=== PATIENT | female | born 1945 | race Caucasian/White ===

== ENCOUNTER 2017-06-13 10:09 | Day surgery (SDC) | payer MEDICARE ==
[~2017-06-13] VITALS: Ht 162.6 cm; Wt 59.6 kg
[2017-06-13] MEDS ORDERED: immodium PO (11:23)
[2017-06-13] MEDS ORDERED: VITA1TAB19 PO (11:23)
[2017-06-13] MEDS ORDERED: CHOL2000 PO (11:23)
[2017-06-13] MEDS ORDERED: TRAZ150T62 PO (11:23)
[2017-06-13] MEDS ORDERED: TEMA30CA PO (11:23)
[2017-06-13 11:24] VITALS: BP 133/63
[2017-06-13] MEDS ORDERED: LIDOCAINE 1%, 2ML ONE (11:32)
[2017-06-13] MEDS ORDERED: LACTATED RINGERS 1,000 ML IV SCH (11:45)
[2017-06-13] MEDS ORDERED: MIDAZOLAM 1 MG/ML, 2ML ONE (11:50)
[2017-06-13] MEDS ORDERED: FENTANYL PF 100 MCG/2ML ONE ×2 (11:50)
[2017-06-13] MEDS ORDERED: ROCURONIUM 10 MG/ML ONE (11:53)
[2017-06-13] MEDS ORDERED: DEXAMETHASONE 4 MG/ML, 5ML ONE (11:53)
[2017-06-13] MEDS ORDERED: SUCCINYLCHOLINE 20 MG/ML, 10ML ONE (11:53)
[2017-06-13] MEDS ORDERED: ONDANSETRON 2MG/ML, 2ML ONE (11:53)
[2017-06-13] MEDS ORDERED: PROPOFOL 10 MG/ML, 20ML ONE (11:53)
[2017-06-13] MEDS ORDERED: LIDOCAINE 1%, 2ML SQ PRN (12:00)
[2017-06-13] MEDS ORDERED: LIDOCAINE-MPF 2% ,5ML ONE (12:28)
[2017-06-13] MEDS ORDERED: LORazepam 2 MG/ML, 1ML IVPush PRN (12:30)
[2017-06-13] MEDS ORDERED: ONDANSETRON 2MG/ML, 2ML IVPush PRN (12:30)
[2017-06-13] MEDS ORDERED: HYDROcodone/APAP 7.5-325MG/15ML UDC PO PRN (12:30)
[2017-06-13] MEDS ORDERED: HYDROmorphone 1 MG/ML, 1ML IV PRN (12:30)
[2017-06-13] MEDS ORDERED: OXYcodone 5 MG/5 ML ORAL.SOL UDC PO PRN (12:30)
[2017-06-13] MEDS ORDERED: FENTANYL PF 100 MCG/2ML IV PRN (12:30)
[2017-06-13] MEDS ORDERED: HYDROmorphone 1 MG/ML, 1ML ONE (12:45)
[2017-06-13] MEDS ORDERED: GLUCAGON 1 MG ONE (13:40)
== END 2017-06-13 18:30 ==
LOC: OUT 10:09
PROVIDERS: ATTEND Internal Medicine
DX: C25.0 Malignant neoplasm of head of pancreas (principal); K21.9 Gastro-esophageal reflux disease without esophagitis
CPT/HCPCS: 43242; 43260; 74328; 88172; 88173; 88177; 88307; 93005; C1769; J0330; J1100; J1170; J1610; J2250; J2405; J2704; J3010; J3490; J7120

== ENCOUNTER 2017-07-31 13:48 | Emergency (ER) | payer MEDICARE ==
[~2017-07-31] VITALS: Ht 162.6 cm; Wt 51.0 kg
[~2017-07-31 13:48] MED LIST: CHOL2000 PO; TEMA30CA PO; TRAZ150T62 PO; VITA1TAB19 PO; immodium PO
[2017-07-31] MEDS ORDERED: PREG100C PO (14:06)
[2017-07-31] MEDS ORDERED: CLON0.5T20 PO (14:06)
[2017-07-31] MEDS ORDERED: SODIUM CHLORIDE FLUSH 10ML SYR IVF ONE (14:30)
[2017-07-31 14:56] LABS: HEMATOCRIT 33.2 % (34.6-47.8); HEMOGLOBIN 10.8 g/dL (11.7-16.4)
[2017-07-31 15:10] LABS: ASPARTATE AMINO TRANSFERASE 47 U/L (15-37); BLOOD UREA NITROGEN 12 mg/dL (7-18)
[2017-07-31 15:16] LABS: IS PT STATUS REG ER OR PRE ER? YES
[2017-07-31 16:15] VITALS: BP 111/47
== END 2017-07-31 17:08 | disposition home or self-care (01) ==
LOC: ED 17:02
DX: R53.81 Other malaise (principal); D64.9 Anemia, unspecified; R74.8 Abnormal levels of other serum enzymes; R74.0 Nonspecific elevation of levels of transaminase and lactic acid dehydrogenase [LDH]; Z85.07 Personal history of malignant neoplasm of pancreas
CPT/HCPCS: 36415; 74022; 80053; 82140; 83605; 83690; 83880; 84484; 85025; 85610; 93005; 99285

== ENCOUNTER 2017-09-12 08:56 | Day surgery (SDC) | payer MEDICARE ==
[~2017-09-12] VITALS: Ht 162.6 cm; Wt 56.2 kg
[~2017-09-12 08:56] MED LIST changes: +CLON0.5T20 PO; +PREG100C PO
[2017-09-12] MEDS ORDERED: PLEASE ENTER HEIGHT AND WEIGHT MC SCH (09:11)
[2017-09-12] MEDS ORDERED: SODIUM CHLORIDE 0.9% 1,000 ML IV SCH (09:16)
[2017-09-12 09:43] VITALS: BP 108/69
[2017-09-12] MEDS ORDERED: CIPROFLOXACIN/PMX 400MG/200ML 200 ML IVPB ONE (10:30)
[2017-09-12] MEDS ORDERED: LIDOCAINE 1%, 20ML ONE (10:45)
[2017-09-12] MEDS ORDERED: MIDAZOLAM 1 MG/ML, 2ML ONE (10:54)
[2017-09-12] MEDS ORDERED: NALOXONE 1 MG/ML, 2ML ONE (10:54)
[2017-09-12] MEDS ORDERED: FENTANYL PF 100 MCG/2ML ONE (10:54)
[2017-09-12] MEDS ORDERED: FLUMAZENIL 0.1 MG/1 ML, 5ML ONE (10:54)
== END 2017-09-12 13:25 ==
LOC: OUT 08:56
PROVIDERS: ATTEND Internal Medicine Hematology & Oncology
DX: T85.590A Other mechanical complication of bile duct prosthesis, initial encounter (principal); C25.0 Malignant neoplasm of head of pancreas; Y83.8 Other surgical procedures as the cause of abnormal reaction of the patient, or of later complication, without mention of misadventure at the time of the procedure; Y92.89 Other specified places as the place of occurrence of the external cause
CPT/HCPCS: 47536; 99156; 99157; C1729; C1769; J0744; J2250; J3010; J3490; J7030; J2310

== ENCOUNTER 2017-09-21 06:13 | Day surgery (SDC) | payer MEDICARE ==
[~2017-09-21] VITALS: Ht 162.6 cm; Wt 58.4 kg
[2017-09-21 06:51] VITALS: BP 119/77
[2017-09-21] MEDS ORDERED: SODIUM CHLORIDE 0.9% 1,000 ML IV SCH ×2 (07:30)
[2017-09-21] MEDS ORDERED: LIDOCAINE 2%, 20ML ONE (07:50)
[2017-09-21] MEDS ORDERED: FENTANYL PF 100 MCG/2ML ONE (08:17)
[2017-09-21] MEDS ORDERED: MIDAZOLAM 1 MG/ML, 2ML ONE (08:17)
[2017-09-21] MEDS ORDERED: FLUMAZENIL 0.1 MG/1 ML, 5ML ONE (08:17)
[2017-09-21] MEDS ORDERED: NALOXONE 1 MG/ML, 2ML ONE (08:17)
== END 2017-09-21 11:30 ==
LOC: OUT 06:13 → EDSTATUS 08:00 → OUT 11:30
PROVIDERS: ATTEND Internal Medicine Hematology & Oncology
DX: C25.0 Malignant neoplasm of head of pancreas (principal); R18.8 Other ascites
CPT/HCPCS: 47536; 76000; 99156; 99157; C1729; C1751; C1769; J2250; J3010; J3490; J7030; J2310

== ENCOUNTER → 2017-10-04 | Outpatient (CLI) | payer MEDICARE ==
[~2017-10-04] MED LIST changes: +LIDOCAINE 1%, 20ML ONE
== END | disposition home or self-care (01) ==
LOC: RAD 08:56
PROVIDERS: ATTEND Internal Medicine Geriatric Medicine
DX: R18.8 Other ascites (principal); R10.9 Unspecified abdominal pain; R14.0 Abdominal distension (gaseous); C25.9 Malignant neoplasm of pancreas, unspecified
CPT/HCPCS: 49083; J3490

== ENCOUNTER 2017-10-17 08:55 | Day surgery (SDC) | payer MEDICARE ==
[~2017-10-17] VITALS: Ht 162.6 cm; Wt 53.8 kg
[~2017-10-17 08:55] MED LIST changes: -LIDOCAINE 1%, 20ML ONE
[2017-10-17 09:33] VITALS: BP 110/68
[2017-10-17] MEDS ORDERED: SODIUM CHLORIDE 0.9% 1,000 ML IV SCH (09:39)
[2017-10-17] MEDS ORDERED: PLEASE ENTER HEIGHT AND WEIGHT MC SCH (10:00)
[2017-10-17] MEDS ORDERED: CIPROFLOXACIN/PMX 400MG/200ML 200 ML IVPB ONE (10:00)
[2017-10-17] MEDS ORDERED: FENTANYL PF 100 MCG/2ML ONE (10:12)
[2017-10-17] MEDS ORDERED: FLUMAZENIL 0.1 MG/1 ML, 5ML ONE (10:12)
[2017-10-17] MEDS ORDERED: MIDAZOLAM 1 MG/ML, 5ML ONE (10:12)
[2017-10-17] MEDS ORDERED: NALOXONE 1 MG/ML, 2ML ONE (10:13)
[2017-10-17] MEDS ORDERED: ONDANSETRON 2MG/ML, 2ML ONE (11:09)
[2017-10-17] MEDS ORDERED: VISIPAQUE 270 MG/ML, 50ML BOTTLE ONE (11:25)
[2017-10-17] MEDS ORDERED: LIDOCAINE 1%, 20ML ONE (11:32)
== END 2017-10-17 14:00 ==
LOC: OUT 08:55
PROVIDERS: ATTEND Internal Medicine Geriatric Medicine
DX: C78.7 Secondary malignant neoplasm of liver and intrahepatic bile duct (principal); R18.8 Other ascites
CPT/HCPCS: 47538; 49083; C1725; C1729; C1751; C1769; C1876; C1894; J0744; J7030; Q9966; 99156; 99157; J2250; J2405; J3010; J3490; J2310

== ENCOUNTER → 2017-11-03 | Outpatient (CLI) | payer MEDICARE ==
[~2017-11-03] MED LIST changes: +LIDOCAINE 1%, 20ML ONE
== END | disposition home or self-care (01) ==
LOC: RAD 12:55
PROVIDERS: ATTEND Internal Medicine Geriatric Medicine
DX: C25.9 Malignant neoplasm of pancreas, unspecified (principal); C22.9 Malignant neoplasm of liver, not specified as primary or secondary; R18.8 Other ascites
CPT/HCPCS: 49083; J3490

== ENCOUNTER → 2017-11-13 | Outpatient (CLI) | payer MEDICARE ==
[~2017-11-13] MED LIST changes: -LIDOCAINE 1%, 20ML ONE
== END | disposition home or self-care (01) ==
LOC: RAD 11:10
PROVIDERS: ATTEND Internal Medicine Geriatric Medicine
DX: R18.8 Other ascites (principal); C25.9 Malignant neoplasm of pancreas, unspecified; C78.7 Secondary malignant neoplasm of liver and intrahepatic bile duct
CPT/HCPCS: 49083

== ENCOUNTER → 2017-11-20 | Outpatient (CLI) | payer MEDICARE ==
[~2017-11-20] MED LIST changes: +LIDOCAINE-MPF 1%, 5ML ONE
== END | disposition home or self-care (01) ==
LOC: RAD 13:12
PROVIDERS: ATTEND Internal Medicine Geriatric Medicine
DX: C25.9 Malignant neoplasm of pancreas, unspecified (principal); C22.9 Malignant neoplasm of liver, not specified as primary or secondary; R18.0 Malignant ascites
CPT/HCPCS: 49083

== ENCOUNTER → 2017-11-24 | Outpatient (CLI) | payer MEDICARE | END | disposition home or self-care (01) | LOC: RAD 10:26 | PROVIDERS: ATTEND Internal Medicine Geriatric Medicine | DX: C25.9 Malignant neoplasm of pancreas, unspecified (principal); R18.8 Other ascites | CPT/HCPCS: 49083 ==

== ENCOUNTER → 2017-11-28 | Outpatient (CLI) | payer MEDICARE | LOC: RAD 10:33 | PROVIDERS: ATTEND Internal Medicine Geriatric Medicine | DX: R18.8 Other ascites (principal); C22.9 Malignant neoplasm of liver, not specified as primary or secondary; C25.9 Malignant neoplasm of pancreas, unspecified | CPT/HCPCS: 49083 ==

== ENCOUNTER → 2017-12-05 | Outpatient (CLI) | payer MEDICARE ==
[~2017-12-05] MED LIST changes: +LIDOCAINE 2%, 10ML ONE; -LIDOCAINE-MPF 1%, 5ML ONE
== END | disposition home or self-care (01) ==
LOC: RAD 09:45
PROVIDERS: ATTEND Internal Medicine Geriatric Medicine
DX: R10.9 Unspecified abdominal pain (principal); R14.0 Abdominal distension (gaseous); R18.8 Other ascites; C25.9 Malignant neoplasm of pancreas, unspecified
CPT/HCPCS: 49083; J3490

== ENCOUNTER → 2017-12-12 | Outpatient (CLI) | payer MEDICARE ==
[~2017-12-12] MED LIST changes: -LIDOCAINE 2%, 10ML ONE; +LIDOCAINE-MPF 1%, 5ML ONE
== END ==
LOC: RAD 08:08
PROVIDERS: ATTEND Internal Medicine Geriatric Medicine
DX: C22.8 Malignant neoplasm of liver, primary, unspecified as to type (principal)
CPT/HCPCS: 49083

== ENCOUNTER → 2018-01-01 | Outpatient (CLI) | payer MEDICARE ==
[~2018-01-01] MED LIST changes: +LIDOCAINE 2%, 20ML ONE; -LIDOCAINE-MPF 1%, 5ML ONE
== END | disposition home or self-care (01) ==
LOC: RAD 08:57
PROVIDERS: ATTEND Internal Medicine Geriatric Medicine
DX: C22.9 Malignant neoplasm of liver, not specified as primary or secondary (principal); R14.0 Abdominal distension (gaseous)
CPT/HCPCS: 49083; J3490

== ENCOUNTER → 2018-01-09 | Outpatient (CLI) | payer MEDICARE | END | disposition home or self-care (01) | LOC: RAD 14:01 | PROVIDERS: ATTEND Internal Medicine Geriatric Medicine | DX: C22.9 Malignant neoplasm of liver, not specified as primary or secondary (principal) | CPT/HCPCS: 49083; J3490 ==